=== PATIENT | female | born 1950 | race Caucasian/White ===

== ENCOUNTER → 2016-04-20 | Day surgery (SDC) | payer OTHER ==
[~2016-04-20] VITALS: Ht 160 cm; Wt 82.6 kg
[~2016-04-20] MED LIST: SYNTHROID125 MCG PO
--- NOTE | 2016-04-20 12:41 | Operative Report ---
Operative/Inv Procedure Report Surgery Date: 04/20/16 Name of Procedure: Left breast biopsy Pre-Operative Diagnosis: Left breast atypia Post-Operative Diagnosis: Same Estimated Blood Loss: scant Surgeon/Psychological Examiner: CARMENCITA LANCASTER MD Anesthesia: local monitored anesthesi Specimens: Left breast biopsy Operative/Procedure Note Note: Patient brought to the operating room on 04/20/2016 after preoperative wire localization was performed and the films reviewed. Incision was planned in the lower outer quadrant left breast. 2 g of Ancef was given in the left breast was prepped and draped in a sterile fashion using ChloraPrep. Local anesthesia of 1 % lidocaine exception Marcaine was given, and a curvilinear incision was made in the 4 o'clock position the left breast. The wire was brought into the incision area of concern was grasped using an Allis clamp. The patient required significant local anesthesia and it lost IV access during the procedure which was replaced without event. Dissection then continued. The air concern was excised and marked for orientation using margin map. Intraoperative x-ray confirmed the presence of the clip in the specimen. Hemostasis was adequate. The deep tissue was approximated using interrupted Vicryl sutures, and the skin was closed using a running Biosyn subcuticular stitch. Steri-Strips and sterile dressings were applied, and the patient was transferred to the recovery room in satisfactory condition having tolerated the procedure well.
--- NOTE | 2016-04-20 14:40 | MAMMOGRAPHY REPORT ---
EXAMINATION: MM PREOPERATIVE LOCALIZATION BREAST,Left CLINICAL INFORMATION: A 65-year-old female with stereotactic biopsy proved complex radial scar, complex sclerosing papillary lesion, intraductal papilloma, microcalcifications, diagnosed on 02/20/2016. Preoperative needle localization prior to surgical excision is requested. TECHNIQUE: After the details of the procedure, as well as the risks, benefits and alternatives to the procedure, were explained to the patient in detail, and all of her questions were answered, preoperative needle localization was performed. Mammographic imaging of the left breast in the LM projection confirms the presence of a tissue marker (jessie-shaped tissue marker) at the site of the prior stereotactic biopsy at upper outer quadrant of the left breast at 3 o'clock. The skin of the left breast was then cleansed with sterile solution. Using mammographic guidance, aseptic technique and 2% 5 mL lidocaine for local anesthesia, a 5 cm [employer] needle-wire system was advanced into the breast from a lateral approach. Orthogonal views were then obtained. Final adjustments of the needle tip position were made, and the wire deployed. The needle was taken out. The patient tolerated the procedure well, and was discharged from the department of radiology in good stable condition. The images were appropriately labelled. A worksheet was appropriately filled out and was sent with the patient to the OR. IMPRESSION: Successful mammographically-guided preoperative needle localization of the indexed left breast mass containing the tissue marker at 3 o'clock. EXAMINATION: MM NEEDLE LOCALIZATION SPECIMEN FROM BREAST, RIGHT: TECHNIQUE: Single radiograph of the excised breast tissue is performed. FINDINGS: The specimen shows the hook wire is delivered intact. The biopsy clip marker and index calcifications are identified in the specimen as well. IMPRESSION: Successful preoperative needle localization of the biopsy proved complex radial scar, complex sclerosing papillary lesion, intraductal papilloma, microcalcifications diagnosed on earlier on stereotactic biopsy done on 02/20/2016. Results were called to Dr. Post in the operating room at the time of imaging. The histology report is pending.
== END ==
LOC: STS 01:58 → CBW.IIU 09:00 → STS 09:00 → CBW.MAMMO 09:30
DX: N60.92 Unspecified benign mammary dysplasia of left breast (principal); E06.3 Autoimmune thyroiditis
CPT/HCPCS: 88307; J0131; J0690; J2001; J2250

== ENCOUNTER 2017-06-17 13:35 | Emergency (ER) | payer OTHER ==
[~2017-06-17] VITALS: Ht 160 cm; Wt 56.7 kg
--- NOTE | 2017-06-17 13:56 | ED MVC/FALL/TRAUMA COMPLAINT ---
History of Present Illness General Chief Complaint: Fall Stated Complaint: FALL LFT ARM PAIN Source: patient, family, old records Exam Limitations: no limitations Vital Signs & Intake/Output Vital Signs & Intake/Output Vital Signs Date Time Temp Pulse Resp B/P B/P Pulse O2 O2 Flow FiO2 Mean Ox Delivery Rate 06/17 1528 97.2 75 16 141/89 97 Room Air 06/17 1417 Room Air 06/17 1341 97.2 74 16 146/88 96 Room Air Allergies Coded Allergies: bacitracin (From NEOSPORIN ([id number])) (12/06/15) neomycin (From NEOSPORIN ([id number])) (12/06/15) polymyxin B (From NEOSPORIN ([id number])) (12/06/15) tobramycin (From Tobrex) (UNKNOWN 12/06/15) Reconcile Medications Levothyroxine Sodium (Synthroid) 125 MCG TABLET 1 TAB PO DAILY AC THYROID ( Reported) Triage Note: PT TO ER C/C SLIP AND FALL ON ICE SUSTAINING INJURY TO LEFT SHOULDER. DENIES HEAD STRIKE. DENIES NECK PAIN. Triage Nurses Notes Reviewed? yes Onset: Abrupt Duration: hour(s): (1), constant Timing: recent history Severity: mild Severity Numbers: 5 Injuries/Fall Location: upper extremity Method of Injury: fall Loss of Consciousness: no loss of consciousness Modifying Factors: Improves With: rest. Worsens With: movement. Associated Symptoms: denies HPI: 66-year-old female history of hypothyroid presents to ER for evaluation status post mechanical trip and fall when she fell on her left shoulder earlier today. She got hit her head there is no loss of consciousness. She denies any neck or back pain the pain is localized over her upper left arm. She denies any numbness or tingling of pain is worse with attempted range of motion of her shoulder, no elbow wrist or hand pain. No right arm or leg injury. She is not taken anything and is declining anything when offered. (Chandler KRAUS,Elliot) Past History Travel History Traveled to [place] past 21 day No Medical History Any Pertinent Medical History? see below for history Neurological: migraine EENT: cataracts Respiratory: NONE Musculoskeletal: OSTEOPENIA Endocrine: Alise's thyroiditis Blood Disorders: anemia Surgical History Surgical History: cataract removal, thyroidectomy partial tonsillectomy Psychosocial History What is your primary language [place]erratian Tobacco Use: Never used Family History Hx Contributory? No (Elliot Kaur) Review of Systems Review of Systems Constitutional: Reports: see HPI. Comments Review of systems: See HPI, All other systems negative. Constitutional, no chills no fever, HEENT: no sore throat no congestion Cardiovascular: No chest pain , no palpitation Skin: no rashes, no change in skin Respiratory: No dyspnea no cough GI: No nausea no vomiting, Muscle skeletal: joint pain, no back pain, no neck pain, Neurologic: , no headache Heme/endocrine: No bruising (Elliot Kaur) Physical Exam Physical Exam General Appearance: well developed/nourished, no apparent distress, alert Comments: Well-developed well-nourished patient in no apparent distress. HEENT: Atraumatic, extraocular motion intact Neck: Supple, FROM Back: FROM Cardiovascular: Regular rate and rhythms no murmur Respiratory: Chest nontender.There were no bony deformities, no asymmetry. No respiratory distress. Patient speaking in full complete sentences. Breath sounds clear to auscultation bilaterally: NO W/R/R Shoulder: Atraumatic/Stable. Limited range of motion secondary to pain there is no ecchymosis no obvious deformity Elbow: Atraumatic/stable. FROM. No laxity Upper arm/Forearm: Atraumatic. Nontender. No edema, 5 out of 5 environmental change analyst strength noted to bilateral upper extremities Hand/Wrist: Atraumatic/stable. Skin intact. FROM Pulses: Normal/equal radial pulses bilaterally. Brisk cap refill Lower Extremities: full range of motion Neuro: awake, alert, and oriented to person, place and time. There were no obvious focal neurologic abnormalities. Skin: Warm & dry;No appreciable rash on exposed skin Psych: Mood affect normal, normal memory normal judgment. Core Measures ACS in differential dx? No CVA/TIA Diagnosis No Sepsis Present: No Sepsis Focused Exam Completed? No (Elliot Kaur) Progress Differential Diagnosis: abd injury, C/T/L spine injury, ICH, pelvis injury, spinal cord injury Plan of Care: Orders Procedure Date/time Status Durable Medical Equipment 06/17 1412 Active X-rays ordered patient declining anything for pain I discussed with the patient at length all of their results.sling applied. I had an extensive conversation regarding need for close follow up with their primary care physician/ortho this week as well as return precautions. I answered all of their questions, they feel comfortable with the plan and follow- up care. I discussed with the patient/family the medications that they will receive. I gave them signs and symptoms that could indicate an adverse reaction. I have advised them to limit their activities until they can see how they respond to the medication. Diagnostic Imaging: Viewed by Me: Radiology Read. Discussed w/RAD: Radiology Read. Radiology Impression: PATIENT: GARY MEDRANO PRESENT AGE: 66 PATIENT ACCOUNT NO: [id number] : 49 LOCATION: [facility] ORDERING PHYSICIAN: Elliot KRAUS SERVICE DATE: 06/17/17 EXAM TYPE: RAD - XRY-HUMERUS, LEFT; XRY-SHOULDER COMPLETE-LEFT EXAMINATIONS: SHOULDER 4 VIEWS, LEFT AND HUMERUS 2 VIEWS, LEFT CLINICAL INFORMATION: Pain after fall. COMPARISON: None. TECHNIQUE: AP views of the left shoulder were obtained in internal and external rotation. In addition, axillary and Y views were obtained. AP and lateral views of the left humerus are provided. FINDINGS: There are no fractures or dislocations. The humeral head is seated within a well-formed glenoid. The AC joint is intact. There is mild age-appropriate degenerative change to the left AC joint. There are no fractures to the left humerus. There is no left elbow joint effusion. IMPRESSION: Mild age-appropriate degenerative change to the left AC joint; otherwise, unremarkable left shoulder and left humerus radiographs. DICTATED BY: Wesly Dailey MD DATE/TIME DICTATED:06/17/171458 WEATHER CLERK:AMARI DATE/TIME TRANSCRIBED:06/17/171458 CONFIDENTIAL, DO NOT COPY WITHOUT APPROPRIATE AUTHORIZATION. <Electronically signed in Other Vendor System> SIGNED BY: Wesly Dailey MD 06/17/17 1300 (Elliot Kaur) Departure Departure Disposition: HOME OR SELF CARE Condition: Stable Clinical Impression Primary Impression: Shoulder sprain Referrals: Marky JAMESON,Jack Oscar (PCP/Family) Samara JAMESON,Manas Romano Additional Instructions: Rest ice shoulder sling as discussed Tylenol Motrin every 4-6 hours. Follow-up with your primary care physician or orthopedist this week, return anytime sooner with any concerns Departure Forms: Customer Survey General Discharge Information (Elliot Kaur) PA/BROACH GRINDER Co-Sign Statement Statement: ED Attending supervision documentation- x I saw and evaluated the patient. I have also reviewed all the pertinent lab results and diagnostic results. I agree with the findings and the plan of care as documented in the PA's/BROACH GRINDER's documentation. [] I have reviewed the ED Record and agree with the PA's/BROACH GRINDER's documentation. [] Additions or exceptions (if any) to the PAs/BROACH GRINDER's note and plan are summarized below: [] (Adriana JAMESON,[place])
--- NOTE | 2017-06-17 15:03 | RADIOLOGY REPORT ---
EXAMINATIONS: SHOULDER 4 VIEWS, LEFT AND HUMERUS 2 VIEWS, LEFT CLINICAL INFORMATION: Pain after fall. COMPARISON: None. TECHNIQUE: AP views of the left shoulder were obtained in internal and external rotation. In addition, axillary and Y views were obtained. AP and lateral views of the left humerus are provided. FINDINGS: There are no fractures or dislocations. The humeral head is seated within a well-formed glenoid. The AC joint is intact. There is mild age-appropriate degenerative change to the left AC joint. There are no fractures to the left humerus. There is no left elbow joint effusion. IMPRESSION: Mild age-appropriate degenerative change to the left AC joint; otherwise, unremarkable left shoulder and left humerus radiographs.
[2017-06-17 15:28] VITALS: BP 141/89
== END 2017-06-17 15:29 ==
LOC: ERH 13:35
DX: S43.402A Unspecified sprain of left shoulder joint, initial encounter (principal); W18.09XA Striking against other object with subsequent fall, initial encounter; Y92.9 Unspecified place or not applicable; Y93.9 Activity, unspecified
CPT/HCPCS: 73030-LT; 73060-LT

== ENCOUNTER → 2017-07-18 | Day surgery (SDC) | payer OTHER ==
[~2017-07-18] VITALS: Ht 160 cm; Wt 86.2 kg
--- NOTE | 2017-07-18 09:44 | Operative Report ---
Operative/Inv Procedure Report Surgery Date: 07/18/17 Name of Procedure: Left shoulder arthroscopy, subacromial decompression, limited debridement, arthroscopic rotator cuff repair Pre-Operative Diagnosis: Left shoulder rotator cuff tear Post-Operative Diagnosis: Left shoulder rotator cuff tear Estimated Blood Loss: scant Surgeon/Youth Program Director: Maria Elena JAMESON,NAYANA Leach Anesthesia: laryngeal mask airway, block Complications: None Condition: Stable to PACU Operative Indication: This 66 female with left shoulder pain after a fall. MRI showed a complete rotator cuff tear.Risks and benefits of the procedure were discussed with the patient at length. Risks include but are not limited to nerve damage, muscle damage, infection, blood loss, blood clots, pulmonary embolus, and even . The patient agreed to the above risks and elected to proceed with surgery. Operative/Procedure Note Note: The patient was taken to the operating room and placed in the lateral decubitus position with the operative side up after anesthesia was induced. The upper extremity was prepped and draped in the normal sterile fashion. A timeout was performed prior to incision. The site marking was visualized prior to incision. IV antibiotics were given prior to incision. After the upper extremity was prepped and draped a spinal needle was used to insufflate the shoulder joint with saline. An 11 blade was used to incise the skin for the posterior portal placement. The cannula was then placed. The camera was inserted. An anterior portal was established just proximal and lateral to the coracoid with a spinal needle and an 11 blade. The diagnostic arthroscopy was then performed which showed the above findings. A shaver was used to debride fraying of the subscapularis insertion. Next the subacromial space was entered through the posterior portal. A lateral portal was established with a spinal needle and an 11 blade. A blunt probe was inserted through the lateral portal. Next the shaver was inserted and a subacromial bursectomy was performed. Any bleeding vessels were identified and cauterized. The shaver was used to debride any bursal tissue on the undersurface of the acromion and surrounding the humeral head. The coracoacromial ligament was taken down with a wand. Care was taken to protect the rotator cuff tissue and only take bursal tissue. A wand was then used to further take down the soft tissue on the undersurface of the acromion. A bur was then inserted and the acromioplasty was then begun starting at the anterolateral edge of the acromion. This was extended down to the level of the acromioclavicular joint. This was then tapered further posteriorly. An 8 mm PassPort cannula was placed through the lateral portal site. A 6 mm PassPort cannula was placed through the anterior portal. An accessory portal was made just off of the lateral border the acromion with a spinal needle and an 11 blade. An 8 mm PassPort cannula was placed through this. The bur was used to prepare the rotator cuff footprint back to a healthy bed of bleeding bone for later rotator cuff repair. Any bursal adhesions superior to the rotator cuff were taken kam with a shaver. A traction stitch was placed at the leading edge of the rotator cuff to apply traction while releasing the adhesions and passing the sutures. A tap was used and two 5.5 mm helicoil anchors were placed just lateral to the articular surface in the rotator cuff footprint. An expressew needle was then used to shuttle the sutures from front to back. The medial row was tied down with a locking knot and several half hitches. The traction stitch was then fixed to soften the lateral border of the footprint with a footprint anchor to reduce the rotator cuff tear. The medial row sutures were then crisscrossed over the top and fixed with 2 lateral row multi fix anchors. An anchor was placed posterior to the bicipital groove. A second anchor was placed further posterior. This afforded excellent compression of the rotator cuff. The excess suture was then cut. A 1/8 inch Hemovac drain was placed through the posterior portal. All instruments were removed and the shoulder was copiously irrigated. The portal sites were closed with 3-0 nylon suture in a simple interrupted fashion. A dry sterile dressing was placed. A sling was applied. The patient was transferred to PACU in stable condition. Findings: Complete tear of the supraspinatus and infraspinatus. Subscapularis with fraying at the insertion. Biceps tendon intact. Anterior, superior, and posterior labrum intact. No loose bodies noted. Grade 1 chondral softening of the humeral head and glenoid articular cartilage. Large subacromial hook. Extensive subacromial bursitis.
== END ==
LOC: STS 03:11
DX: S46.012A Strain of muscle(s) and tendon(s) of the rotator cuff of left shoulder, initial encounter (principal); W19.XXXA Unspecified fall, initial encounter; M75.52 Bursitis of left shoulder; E06.3 Autoimmune thyroiditis
CPT/HCPCS: C9290; J0171; J0690; J2250